=== PATIENT | female | born 1960 | race Caucasian/White ===

== ENCOUNTER → 2018-11-08 | Outpatient (CLI) | payer OTHER ==
--- NOTE | 2018-11-08 09:33 | WOMENS IMAGING REPORT ---
EXAM DESCRIPTION: U/S ABDOMEN LIMITED COMPLETED DATE/TIME: 11/08/2018 8:19 am REASON FOR STUDY: R10.13 EPIGASTRIC PAIN R10.13 EPIGASTRIC PAIN COMPARISON: Abdominal ultrasound 01/13/2009 TECHNIQUE: Dynamic and static grayscale images acquired of the abdomen and recorded on PACS. Additio nal selected color Doppler and spectral images recorded. LIMITATIONS: Midline bowel gas, large body habitus FINDINGS: PANCREAS: Not well seen LIVER: Echogenic liver difficult to penetrate with the ultrasound energy from fatty infiltration. No gross focal masses or biliary ductal dilatation LIVER VASCULATURE: Normal directional flow of the main portal vein and hepatic veins. GALLBLADDER: Multiple shadowing gallstones are present. No gallbladder wall thickening or pericholec ystic fluid ULTRASOUND-DETECTED MOLINA'S SIGN: Negative. INTRAHEPATIC DUCTS AND COMMON DUCT: CBD and intrahepatic ducts normal caliber. No filling defects. INFERIOR VENA CAVA: Not well seen AORTA: Not well seen RIGHT KIDNEY: Normal size. Normal echogenicity. No solid or suspicious masses. No hydronephrosis. No calcifications. PERITONEAL AND RIGHT PLEURAL SPACE: No ascites or effusions. OTHER: No other significant findings. IMPRESSION: Fatty liver Stones in the gallbladder without gallbladder wall thickening or pericholecystic fluid. TECHNICAL DOCUMENTATION: JOB ID: [id number] [employer]- All Rights Reserved Reading location - IP/workstation name: [email or web address]
== END ==
LOC: WI 07:51
PROVIDERS: ATTEND Internal Medicine Gastroenterology
DX: R10.13 Epigastric pain (principal)
CPT/HCPCS: 76705

== ENCOUNTER 2018-12-13 07:58 | Day surgery (SDC) | payer OTHER ==
[2018-12-07 10:48] LABS: HEMATOCRIT 41.7 % (36.0-47.0); HEMOGLOBIN 13.8 g/dL (12.0-15.5); MEAN CORPUSCULAR HGB CONC 33.2 g/dL (32.0-36.0); MEAN CORPUSCULAR VOLUME 91 fl (80-97); PLATELET COUNT 299 10^3/uL (150-450); RED CELL DISTRIBUTION WIDTH 13.7 % (11.5-14.0); WHITE BLOOD COUNT 4.6 10^3/uL (4.0-10.5)
--- NOTE | 2018-12-07 11:02 | RADIOLOGY REPORT (SQ) ---
EXAM DESCRIPTION: CHEST PA/LATERAL COMPLETED DATE/TIME: 12/07/2018 10:46 am REASON FOR STUDY: COUGH COMPARISON: 10/09/2011 EXAM PARAMETERS: NUMBER OF VIEWS: two views TECHNIQUE: Digital Frontal and Lateral radiographic views of the chest acquired. RADIATION DOSE: NA LIMITATIONS: none FINDINGS: LUNGS AND PLEURA: No opacities, masses or pneumothorax. No pleural effusion. MEDIASTINUM AND HILAR STRUCTURES: No masses or contour abnormalities. HEART AND VASCULAR STRUCTURES: Heart normal size. No evidence for failure. BONES: No acute findings. HARDWARE: None in the chest. OTHER: No other significant finding. IMPRESSION: NO SIGNIFICANT RADIOGRAPHIC FINDING IN THE CHEST. TECHNICAL DOCUMENTATION: JOB ID: [id number] [employer]- All Rights Reserved Reading location - IP/workstation name: [email or web address]
[2018-12-07 11:22] LABS: ALANINE AMINOTRANSFERASE 40 U/L (9-52); ALKALINE PHOSPHATASE 74 U/L (38-126); ANION GAP 9 (5-19); ASPARTATE AMINO TRANSFERASE 31 U/L (14-36); BILIRUBIN,DIRECT 0.2 mg/dL (0.0-0.4); BILIRUBIN,TOTAL 0.3 mg/dL (0.2-1.3); BLOOD UREA NITROGEN 8 mg/dL (7-20); CALCIUM 9.9 mg/dL (8.4-10.2); CARBON DIOXIDE 30 mmol/L (22-30); CHLORIDE 104 mmol/L (98-107); GLUCOSE 107 mg/dL (75-110); POTASSIUM 5.2 mmol/L (3.6-5.0); SODIUM 142.8 mmol/L (137-145); TOTAL PROTEIN 6.9 g/dL (6.3-8.2)
--- NOTE | 2018-12-07 22:34 | EKG REPORT ---
SEVERITY:- BORDERLINE ECG - SINUS RHYTHM BORDERLINE T ABNORMALITIES, ANTERIOR LEADS : Confirmed by: Jazmyne oCnrad 07-Dec-2018 22:34:34
[~2018-12-13 07:58] MED LIST: CEFOXITIN SODIUM 2 GM in DEXTROSE 5%-WATER 100 ML IV PRN; IBUPROFEN 800 MG in NORMAL SALINE 250 ML IV PRN; LACTATED RINGERS 1000 ML IV PRN; LIDOCAINE 0.5% INJ-PF (5 MG/ML) 50 ML SDV SUBCUT PRN; PREGABALIN 50 MG CAPSULE ONE; PREGABALIN 50 MG CAPSULE PO PRN
[2018-12-13] MEDS ORDERED: BUPIVACAINE HCL 0.25 % INJ/PF (2.5 MG/1 ML) 30 ML VIAL ONE (08:01)
[2018-12-13] MEDS ORDERED: FAMOTIDINE INJ/PF 20 MG/2 ML SDV IV ONE (08:11)
[2018-12-13] MEDS ORDERED: SCOPOLAMINE HYDROBROMIDE 1.5 MG PATCH.TD72 ONE (08:11)
[2018-12-13] MEDS ORDERED: RINGERS SOLUTION,LACTATED 1,000 ML IV ONE (08:30)
[2018-12-13] MEDS ORDERED: PROPOFOL INJ 200 MG/20 ML VIAL IV ONE (09:19)
[2018-12-13] MEDS ORDERED: MIDAZOLAM 2 MG/2 ML INJ ONE (09:19)
[2018-12-13] MEDS ORDERED: FENTANYL CITRATE INJ/PF 100 MCG/2 ML AMPUL ONE ×2 (09:19→09:55)
[2018-12-13] MEDS ORDERED: LIDOCAINE 2% INJ-PF (100 MG/5 ML) SYRINGE ONE (09:19)
[2018-12-13] MEDS ORDERED: HYDROMORPHONE HCL INJ/PF 2 MG/ML AMPULE ONE (09:55)
[2018-12-13] MEDS ORDERED: DIPHENHYDRAMINE HCL 50 MG/ML VIAL IV PRN (12:38)
[2018-12-13] MEDS ORDERED: FENTANYL CITRATE INJ/PF 100 MCG/2 ML AMPUL IV PRN ×3 (12:38)
[2018-12-13] MEDS ORDERED: PROMETHAZINE HCL INJ 25 MG/1 ML VIAL IV PRN ×2 (12:38)
[2018-12-13] MEDS ORDERED: ONDANSETRON HCL INJ/PF 4 MG/2 ML SDV IV PRN (12:38)
[2018-12-13] MEDS ORDERED: HYDROCODONE/ACETAMINOPHEN 10-325 MG TABLET ONE (12:51)
[2018-12-13] MEDS ORDERED: METOCLOPRAMIDE HCL INJ/PF 10 MG/2 ML SDV ONE (13:30)
[2018-12-13] MEDS ORDERED: ONDANSETRON HCL INJ/PF 4 MG/2 ML SDV ONE (13:30)
[2018-12-13] MEDS ORDERED: ROCURONIUM BROMIDE INJ 50 MG/5 ML VIAL IV ONE (13:30)
[2018-12-13] MEDS ORDERED: DEXAMETHASONE SOD PHOSPHATE INJ 4 MG/1 ML VIAL ONE (13:30)
[2018-12-13] MEDS ORDERED: NEOSTIGMINE METHYLSULFATE 10 MG/10 ML VIAL ONE (13:30)
[2018-12-13] MEDS ORDERED: PHENYLEPHRINE HCL INJ/PF 10 MG/1 ML SDV ONE (13:30)
[2018-12-13] MEDS ORDERED: SUCCINYLCHOLINE CHLORIDE INJ 200 MG/10 ML VIAL ONE (13:30)
[2018-12-13] MEDS ORDERED: GLYCOPYRROLATE 1 MG/5 ML SYRINGE ONE (13:30)
[2018-12-13 16:01] VITALS: BP 152/78
--- NOTE | 2018-12-14 07:26 | Discharge Summary ---
Discharge Summary (SDC) - Discharge Final Diagnosis: Chronic cholecystitis Date of Surgery: 12/13/18 Discharge Date: 12/13/18 Condition: Stable Forms: ASU Anesthesia D/C Instruction, Discharge POC-Surgical Service Treatment or Instructions: Discharge home. Diet as tolerated. Activity: No lifting greater than 10 pounds x 2 weeks. Follow-up with me in 7 to 10 days. Okay to shower in 48 hours. No tub baths or swimming pools x2 weeks. [place] 10/325 mg p.o. every 6 hours as needed for pain. Ibuprofen 800 mg p.o. 3 times daily with meals. Referrals: GOLD BROUSSARD MD [ACTIVE STAFF] - 12/20/18 8:00 am (Keep your scheduled follow up appointment.) Discharge Diet: As Tolerated Respiratory Treatments at Home: Deep Breathing/Coughing, Incentive Spirometer Discharge Activity: Balance Activity w/Rest, No Lifting Over 10 Pounds Home Care Assistance: None Needed Report the Following to Your Physician Immediately: Shortness of Breath, Nausea, Vomiting, Increase in Pain, Yellow Skin, Fever over 101 Degrees, Unusual Bleeding, Redness, Swelling, Warmth, Drainage-Foul Smelling, IV Site Infection Signs
--- NOTE | 2018-12-14 07:33 | Operative Report ---
Nonrecallable Operative Report DATE OF SURGERY: 12/13/18 PREOPERATIVE DIAGNOSIS: Symptomatic gallstones POSTOPERATIVE DIAGNOSIS: Chronic cholecystitis OPERATION: Laparoscopic cholecystectomy SURGEON: GOLD BROUSSARD 1ST TROUBLE DISPATCHER: ABBY CARR ANESTHESIA: GA TISSUE REMOVED OR ALTERED: Gallbladder COMPLICATIONS: None apparent ESTIMATED BLOOD LOSS: 30 cc PROCEDURE: Drains/implants: None. Procedure in detail: After informed consent was obtained, the patient was brought to the operating room and laid in the supine position. The area of the abdomen was prepped and draped in a normal sterile fashion. A supraumbilical incision was created with a 15 blade scalpel. This was deepened using sharp and blunt means. The linea alba fascia was incised sharply, the abdomen was entered sharply. The balloon trocar was inserted, and pneumoperitoneum was achieved. A subxiphoid 5 mm port was placed under direct laparoscopic visualization. 2 more 5 mm ports were placed in the right upper quadrant in similar fashion. Atraumatic graspers were placed through the 5 mm ports. The gallbladder was then retracted cephalad and laterally. There was a dense inflammatory reaction in and around the gallbladder. This appeared chronic. Multiple adhesions were taken down from the gallbladder using sharp and blunt dissection. Dissection was then begun in the triangle of [place]. The cystic duct and cystic artery will were identified. The cystic duct appeared short and dilated. There is a large gallstone lodged in the infundibulum. The cystic artery was easily identified. Once both structures were identified and the critical view of safety was confirmed, the cystic artery was clipped and cut with laparoscopic instruments. Next attention was turned to freeing of the gallbladder, as the cystic duct was too large and short to accommodate endoscopic clips. The gallbladder was freed from the liver using sharp dissection, blunt dissection, and electrocautery. Once this was completed the gallbladder was elevated and a PDS Endoloop was secured around the cystic duct/infundibulum junction. The gallbladder was then amputated and placed into an Endo Catch bag. The gallbladder was then removed through the supraumbilical incision. Due to the large gallstone, the fascial and skin incision had to be lengthened. The camera was then reinserted. The abdomen was copiously irrigated and suctioned until the effluent was clear. The hilum was inspected. It was found to be free of any leakage of blood or bile. Once this was confirmed, the 5 mm trochars were removed under direct laparoscopic visualization. The supraumbilical trocar was removed, and pneumoperitoneum was relieved. Low to the large incision that was made to remove the gallstone, 0 Ethibond was used in [id number] fashion x2 to close the fascia of the supraumbilical incision. The overlying skin was closed using 4-0 Vicryl Rapide suture in subcuticular fashion. Dressings were placed, and the procedure was concluded. All sponge, instrument, and needle counts were correct x2. Condition: Stable. Abby Carr PA-C was scrubbed and present the entirety the procedure. She assisted with all portions of the procedure including opening of the abdomen, manipulation of the gallbladder, placement of the trochars, removal of the gallbladder, closure of the fascia, and closure of the skin.
== END 2018-12-13 14:00 | disposition home or self-care (01) ==
LOC: OROUT 07:58
PROVIDERS: ATTEND Surgery
DX: K80.10 Calculus of gallbladder with chronic cholecystitis without obstruction (principal); E03.9 Hypothyroidism, unspecified; G35 Multiple sclerosis; Z79.899 Other long term (current) drug therapy
CPT/HCPCS: 93005; 36415 ×2; 84132; 85027; 80053; 88304 ×2; 71046; 93010; 47562; J2250; J3490 ×3; J1100; J0694; J3010; J2001; J2765; J2710; J1170; J2370; J0330; J2405; J7060; J7050; J2704; S0028; J1741; 790

== ENCOUNTER 2019-04-20 07:33 | Observation (INO) | payer OTHER ==
[2019-04-20] MEDS ORDERED: ASPIRIN 81 MG TABLET, CHEWABLE PO ONE (07:53)
[2019-04-20] MEDS ORDERED: ASPIRIN 81 MG TABLET, CHEWABLE ONE (07:55)
[2019-04-20 08:20] LABS: ABSOLUTE EOSINOPHILS # (AUTO) 0.1 10^3/uL (0.0-0.6); ABSOLUTE LYMPHOCYTES (AUTO) 1.2 10^3/uL (0.5-4.7); ABSOLUTE MONOCYTES (AUTO) 0.5 10^3/uL (0.1-1.4); ABSOLUTE NEUT (AUTO) 2.7 10^3/uL (1.7-8.2); BASOPHILS % (AUTO) 0.5 % (0-2); EOSINOPHILS % (AUTO) 1.3 % (0-6); HEMATOCRIT 41.3 % (36.0-47.0); HEMOGLOBIN 13.8 g/dL (12.0-15.5); LYMPHOCYTES % (AUTO) 26.6 % (13-45); MEAN CORPUSCULAR HEMOGLOBIN 29.7 pg (27.0-33.4); MEAN CORPUSCULAR HGB CONC 33.4 g/dL (32.0-36.0); MEAN CORPUSCULAR VOLUME 89 fl (80-97); MONOCYTES % (AUTO) 11.9 % (3-13); PLATELET COUNT 299 10^3/uL (150-450); RED BLOOD COUNT 4.64 10^6/uL (3.72-5.28); RED CELL DISTRIBUTION WIDTH 14.7 % (11.5-14.0); SEGMENTED NEUTROPHILS % (AUTO) 59.7 % (42-78); TOTAL CELLS COUNTED % (AUTO) 100 %; WHITE BLOOD COUNT 4.4 10^3/uL (4.0-10.5)
[2019-04-20] MEDS ORDERED: LORAZEPAM INJ 2 MG/1 ML VIAL IV ONE (08:34)
[2019-04-20] MEDS ORDERED: KETOROLAC TROMETHAMINE INJ/PF 30 MG/1 ML SDV IV ONE (08:34)
--- NOTE | 2019-04-20 08:40 | RADIOLOGY REPORT (SQ) ---
EXAM DESCRIPTION: CHEST SINGLE VIEW COMPLETED DATE/TIME: 04/20/2019 8:22 am REASON FOR STUDY: chest pain COMPARISON: 12/07/2018. EXAM PARAMETERS: NUMBER OF VIEWS: One view. TECHNIQUE: Single frontal radiographic view of the chest acquired. RADIATION DOSE: NA LIMITATIONS: None. FINDINGS: LUNGS AND PLEURA: No opacities, masses or pneumothorax. No pleural effusion. MEDIASTINUM AND HILAR STRUCTURES: No masses. Contour normal. HEART AND VASCULAR STRUCTURES: Heart normal in size. Normal vasculature. BONES: No acute findings. HARDWARE: None in the chest. OTHER: No other significant finding. IMPRESSION: NO ACUTE RADIOGRAPHIC FINDING IN THE CHEST. TECHNICAL DOCUMENTATION: JOB ID: [id number] [employer]- All Rights Reserved Reading location - IP/workstation name: [email or web address]
[2019-04-20 08:41] LABS: ALBUMIN 4.3 g/dL (3.5-5.0); ALKALINE PHOSPHATASE 86 U/L (38-126); ANION GAP 10 (5-19); ASPARTATE AMINO TRANSFERASE 30 U/L (14-36); BILIRUBIN,DIRECT 0.1 mg/dL (0.0-0.4); BILIRUBIN,TOTAL 0.3 mg/dL (0.2-1.3); BLOOD UREA NITROGEN 8 mg/dL (7-20); CARBON DIOXIDE 27 mmol/L (22-30); CHLORIDE 103 mmol/L (98-107); CREATINE KINASE 112 U/L (30-135); GLUCOSE 98 mg/dL (75-110); POTASSIUM 4.4 mmol/L (3.6-5.0)
--- NOTE | 2019-04-20 08:50 | ER Document Report ---
Entered by FERNIE EDMOND SCRIBE 04/20/19 0839 Acting as scribe for:ELISEO ROB MD ED Cardiac - General Chief Complaint: Chest Pain Stated Complaint: CHEST PAIN, LEFT ARM PAIN Time Seen by Provider: 04/20/19 08:21 Mode of Arrival: Ambulatory Information source: Patient Notes: 58-year-old female who presents to the emergency department today with complaints of chest pain which began around midnight last night. Patient states the pain lasted until she fell asleep around 2 AM. Patient states the pain woke her up out of sleep at 530 this morning and has been constant since then. Patient describes the pain as a "giant muscle cramp". Patient states she has pain that radiates down from her chest through her abdomen into her pelvis. Patient states that she does not notice any change with movements, deep breathing, or coughing. Patient states "it feels like maybe if I take a deep breath it would alleviate it". Patient appears anxious. Patient mentions that one week ago she had an ultrasound done of the left side of her abdomen due to chronic left-sided abdominal pain. Patient states she has not yet gotten the results of this. TRAVEL OUTSIDE OF THE [place] IN LAST 30 DAYS: No - Related Data Allergies/Adverse Reactions: codeine [Codeine] Allergy (Intermediate, Verified 12/07/18 10:27) Hives, Vomiting Past Medical History - General Information source: Patient - Social History Smoking Status: Never Smoker Cigarette use (# per day): No Chew tobacco use (# tins/day): No Smoking Education Provided: No Frequency of alcohol use: Occasional Drug Abuse: None Lives with: Family Family History: Reviewed & Not Pertinent Patient has suicidal ideation: No Patient has homicidal ideation: No Pulmonary Medical History: Reports: Hx Pneumonia GI Medical History: Reports: Hx Ulcer - 2016 Past Surgical History: Reports: Hx Abdominal Surgery - gastric bypass , Hx Cholecystectomy - November 2018 - Immunizations Hx Diphtheria, Pertussis, Tetanus Vaccination: Yes Review of Systems - Review of Systems Constitutional: No symptoms reported EENT: No symptoms reported Cardiovascular: See HPI, Chest pain Respiratory: No symptoms reported Gastrointestinal: No symptoms reported Genitourinary: No symptoms reported Female Genitourinary: No symptoms reported Musculoskeletal: No symptoms reported Skin: No symptoms reported Hematologic/Lymphatic: No symptoms reported Neurological/Psychological: No symptoms reported -: Yes All other systems reviewed and negative Physical Exam - Vital signs Vitals: Temp Pulse Resp BP Pulse Ox 97.6 F 84 20 148/84 H 100 04/20/19 07:42 04/20/19 07:42 04/20/19 07:42 04/20/19 07:42 04/20/19 07:42 - Notes Notes: Physical Exam: General: Alert, appears anxious. HEENT: Normocephalic. Atraumatic. PERRL. Extraocular movements intact. Orophar ynx clear. Neck: Supple. Non-tender. Respiratory: No respiratory distress. Clear and equal breath sounds bilaterally. Cardiovascular: Regular rate and rhythm. Abdominal: Obese. Non-tender. No distension. Normal Bowel Sounds. Back: No gross abnormalities. Extremities: Moves all four extremities. Upper extremities: Normal inspection. Normal ROM. Lower extremities: Normal inspection. No edema. Normal ROM. Neurological: Rhythmic jerking of left leg. Normal cognition. AAOx4. Normal speech. Psychological: Anxious, frequent long deep signs throughout exam. Skin: Warm. Dry. Normal color. Course - Re-evaluation Re-evalutation: 04/20/19 13:57 The patient repeat troponin was also undetectable. I just now went in to see the patient, and she had sudden onset of the same pain in her left upper anterior chest causing her to clutch her chest. She began to breathe a little fast and deep. She states it is just like the pain previously and this came on suddenly waking her up. I did give her 1 sublingual nitroglycerin, her most recent blood pressure was about 140 systolic. A few minutes after nitroglycerin her systolic pressure was just over 160 and she was quite anxious. I did notice on the monitor during this time she is having frequent PACs with compensatory pauses. During this time a repeat physical exam shows no chest wall tenderness, no abdominal tenderness. 04/20/19 14:28 Patient reports that her chest discomfort is still present, but it is much better than it was when I was in the room previously. She is having a rare PAC at this time. I gave her an additional sublingual nitroglycerin to see if it makes the pain improve anymore. 04/20/19 15:16 I went into see the patient shortly after the second nitroglycerin, and she states that the pain went away completely after the second nitroglycerin, and she thinks that the resolution of pain was related to the nitroglycerin tablet. - Vital Signs Vital signs: Temp Pulse Resp BP Pulse Ox 98.2 F 84 9 L 142/70 H 97 04/20/19 12:01 04/20/19 07:42 04/20/19 13:01 04/20/19 13:01 04/20/19 13:01 - Laboratory Result Diagrams: 04/20/19 08:06 04/20/19 08:06 Laboratory results interpreted by me: 04/20/19 04/20/19 08:06 09:00 RDW 14.7 H Ur Leukocyte Esterase SMALL H - Diagnostic Test Radiology reviewed: Image reviewed, Reports reviewed - Chest x-ray does not show any acute findings. - EKG Interpretation by Me EKG shows normal: Sinus rhythm, [place], Intervals, QRS Complexes. abnormal: ST-T Waves - Borderline anterior lateral T abnormalities Rate: Normal - 83 Rhythm: NSR - Consults DC [place] Time consulted: 15:20 Consulted provider: will come to ER Discharge - Discharge Clinical Impression: Chest pain Qualifiers: Chest pain type: unspecified Qualified Code(s): R07.9 - Chest pain, unspecified High blood pressure Qualifiers: Hypertension type: unspecified Qualified Code(s): I10 - Essential (primary) hypertension Condition: Stable Disposition: ADMITTED OBSERVATION Admitting Provider: [place] (Hospitalist) Unit Admitted: Telemetry Scribe Attestation: 04/20/19 10:22 I personally performed the services described in the documentation, reviewed and edited the documentation which was dictated to the scribe in my presence, and it accurately records my words and actions. I personally performed the services described in the documentation, reviewed and edited the documentation which was dictated to the scribe in my presence, and it accurately records my words and actions.
[2019-04-20 08:52] LABS: CREATINE KINASE MB 1.24 ng/mL (<4.55)
[2019-04-20 08:55] LABS: TROPONIN I < 0.012 ng/mL
[2019-04-20 09:35] LABS: APPEARANCE,URINE CLEAR; BILIRUBIN,URINE NEGATIVE (NEGATIVE); COLOR,URINE STRAW; GLUCOSE, URINE NEGATIVE (NEGATIVE); KETONES,URINE NEGATIVE (NEGATIVE); LEUKOCYTE ESTERASE,URINE SMALL (NEGATIVE); NITRITE,URINE NEGATIVE (NEGATIVE); PROTEIN,URINE NEGATIVE (NEGATIVE); URINE SPECIFIC GRAVITY 1.005; UROBILINOGEN,URINE NEGATIVE mg/dL (<2.0)
[2019-04-20] MEDS ORDERED: ONDANSETRON HCL INJ/PF 4 MG/2 ML SDV IV PRN (16:17)
[2019-04-20] MEDS ORDERED: OXYCODONE-ACETAMINOPHEN 5-325 MG TABLET PO PRN (16:17)
[2019-04-20] MEDS ORDERED: ONDANSETRON 4 MG TAB.RAPDIS PO PRN (16:17)
[2019-04-20] MEDS ORDERED: ZOLPIDEM TARTRATE 5 MG TABLET PO PRN (16:17)
[2019-04-20] MEDS ORDERED: ACETAMINOPHEN 325 MG TABLET PO PRN (16:17)
[2019-04-20] MEDS ORDERED: NITROGLYCERIN 0.4 MG/TAB 25 TAB/BOTTLE SL PRN (16:27)
[2019-04-20] MEDS ORDERED: OCRELIZUMAB 300 MG IV SCH (16:30)
--- NOTE | 2019-04-20 16:54 | PDOC H&P ---
History of Present Illness Admission Date/PCP: 04/20/19 15:55 History of Present Illness: DAGMAR MAIER is a 58 year old female admitted to the hospital today on 04/20/2019 chest pain. Patient states that last night around midnight for about 2 hours she had left-sided chest wall pain that went down the left arm. She also says it went down to the left side of her body into her left chest abdomen and pelvis. Been having pelvic pain and left-sided abdominal pain for about 3 months now. Being investigated with ultrasound last week. Patient states again this morning she had left-sided chest wall pain around 0530 so she came to the emergency room. So far troponin x2 have been negative. EKG shows no acute changes. She did get relief from 2 nitroglycerin lingual in the ER. She was also given some Toradol and Zofran which seemed to give her relief earlier as well. She has a strong family history of cardiac disease father had a double bypass mother had a triple bypass both in her 60s 5 siblings and pretty much all of them have cardiac disease of some sort. Patient has multiple sclerosis now for the last 7 years. Patient has had right- sided neurologic symptoms from her MS in the past.. Patient was wondering if these problems in her abdomen and left side of her chest wall or related to her MS. she does not smoke cigarettes, she does not drink alcohol, codeine gives her hives. 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 She does not have a primary care provider. Past Medical History Cardiac Medical History: Denies: Coronary Artery Disease, Myocardial Infarction, Hypertension Pulmonary Medical History: Reports: Pneumonia Denies: Asthma, Bronchitis, Chronic Obstructive Pulmonary Disease (COPD) Neurological Medical History: Denies: Seizures Endocrine Medical History: Reports: Hypothyroidism GI Medical History: Reports: Other - Gastric bypass in 2008 Musculoskeltal Medical History: Denies: Arthritis Psychiatric Medical History: Reports: Other - She is on antidepressant Hematology: Reports: Anemia Past Surgical History Past Surgical History: Reports: Cholecystectomy - November 2018 Social History Lives with: Family Smoking Status: Never Smoker - Advance Directive Resuscitation Status: Full Code Family History Family History: Reviewed & Not Pertinent Parental Family History Reviewed: No Children Family History Reviewed: No Sibling(s) Family History Reviewed.: No Medication/Allergy Home Medications: Duloxetine HCl [Cymbalta] 60 mg PO DAILY 04/20/19 Levothyroxine Sodium [Synthroid] 137 mcg PO Q6AM 04/20/19 Ocrelizumab [Ocrevus] 300 mg IV .[id number] 04/20/19 Oxcarbazepine [Trileptal 150 mg Tablet] 150 mg PO BID 04/20/19 Thyroid (Pork) [[place] Thyroid 60 mg Tablet] 60 mg PO Q6AM 04/20/19 Allergies/Adverse Reactions: codeine [Codeine] Allergy (Intermediate, Verified 12/07/18 10:27) Hives, Vomiting Review of Systems Constitutional: ABSENT: chills, fever(s), headache(s), weight gain, weight loss Cardiovascular: PRESENT: chest pain Respiratory: ABSENT: cough, hemoptysis Gastrointestinal: PRESENT: abdominal pain Genitourinary: PRESENT: other - Snow pain Neurological: ABSENT: abnormal gait, abnormal speech, confusion, dizziness, focal weakness, syncope Psychiatric: ABSENT: anxiety, depression, homidical ideation, suicidal ideation Physical Exam Vital Signs: Temp Pulse Resp BP Pulse Ox 98.2 F 84 9 L 142/70 H 97 04/20/19 12:01 04/20/19 07:42 04/20/19 13:01 04/20/19 13:01 04/20/19 13:01 Intake & Output 04/19/19 04/20/19 04/21/19 06:59 06:59 06:59 Weight 112.491 kg General appearance: PRESENT: no acute distress, other - No chest pain now no shortness of breath Respiratory exam: PRESENT: clear to auscultation rachel. ABSENT: rales, rhonchi, wheezes Cardiovascular exam: PRESENT: RRR. ABSENT: diastolic murmur, rubs, systolic murmur Neurological exam: PRESENT: alert, awake, oriented to person, oriented to place, oriented to time, oriented to situation, CN II-XII grossly intact. ABSENT: motor sensory deficit Psychiatric exam: PRESENT: appropriate affect, normal mood. ABSENT: homicidal ideation, suicidal ideation Results Laboratory Results: 04/20/19 08:06 04/20/19 08:06 04/20/19 04/20/19 04/20/19 08:06 08:06 09:00 WBC 4.4 RBC 4.64 Hgb 13.8 Hct 41.3 MCV 89 MCH 29.7 MCHC 33.4 RDW 14.7 H Plt Count 299 Seg Neutrophils % 59.7 Sodium 139.7 Potassium 4.4 Chloride 103 Carbon Dioxide 27 Anion Gap 10 BUN 8 Creatinine 0.53 Est GFR ( Amer) > 60 Glucose 98 Calcium 10.0 Total Bilirubin 0.3 AST 30 Alkaline Phosphatase 86 Total Protein 7.0 Albumin 4.3 Urine Color STRAW Urine Appearance CLEAR Urine pH 9.0 Ur Specific [place] 1.005 Urine Protein NEGATIVE Urine Glucose (UA) NEGATIVE Urine Ketones NEGATIVE Urine Blood NEGATIVE Urine Nitrite NEGATIVE Ur Leukocyte Esterase SMALL H Urine WBC (Auto) 10 Urine RBC (Auto) 1 04/20/19 04/20/19 04/20/19 08:06 08:06 11:05 Creatine Kinase 112 CK-MB (CK-2) 1.24 Troponin I < 0.012 < 0.012 Impressions: Chest X-Ray 04/20/19 07:54 IMPRESSION: NO ACUTE RADIOGRAPHIC FINDING IN THE CHEST. Assessment and Plan - Diagnosis (1) Hypothyroidism Is this a current diagnosis for this admission?: Yes (2) Depression Is this a current diagnosis for this admission?: Yes (3) Multiple sclerosis Is this a current diagnosis for this admission?: Yes (4) Obesity Is this a current diagnosis for this admission?: Yes (5) Chest pain Qualifiers: Chest pain type: unspecified Qualified Code(s): R07.9 - Chest pain, unspecified Is this a current diagnosis for this admission?: Yes - Plan Summary Summary: 04/20/2019 going to get a third troponin this evening can recheck her lipids in the morning can start on a beta-deepa and a statin. Probably follow-up with cardiology as an outpatient for a stress test and an echo. Explained this to the patient she is satisfied with this approach. She will be put in under observation status Medically stable - Time Time Spent with patient: 35 or more minutes
[2019-04-20] MEDS: OXCARBAZEPINE 150 MG TABLET PO SCH (18:50)
--- NOTE | 2019-04-20 19:24 | EKG REPORT ---
SEVERITY:- BORDERLINE ECG - SINUS RHYTHM BORDERLINE T ABNORMALITIES, ANT-LAT LEADS : Confirmed by: Farida Sanabria MD 20-Apr-2019 19:23:32
[2019-04-20 20:16] LABS: CREATINE KINASE MB 0.77 ng/mL (<4.55)
[2019-04-20 20:25] LABS: TROPONIN I < 0.012 ng/mL
[2019-04-20] MEDS: FAMOTIDINE 20 MG TABLET PO SCH (21:06)
[2019-04-20] MEDS ORDERED: ATORVASTATIN CALCIUM 10 MG TABLET PO SCH (22:00)
[2019-04-21 05:22] LABS: ABSOLUTE EOSINOPHILS # (AUTO) 0.1 10^3/uL (0.0-0.6); ABSOLUTE LYMPHOCYTES (AUTO) 1.3 10^3/uL (0.5-4.7); ABSOLUTE MONOCYTES (AUTO) 0.6 10^3/uL (0.1-1.4); BASOPHILS % (AUTO) 0.5 % (0-2); EOSINOPHILS % (AUTO) 2.4 % (0-6); HEMATOCRIT 38.7 % (36.0-47.0); LYMPHOCYTES % (AUTO) 33.5 % (13-45); MEAN CORPUSCULAR HEMOGLOBIN 29.8 pg (27.0-33.4); MEAN CORPUSCULAR HGB CONC 33.6 g/dL (32.0-36.0); MEAN CORPUSCULAR VOLUME 89 fl (80-97); MONOCYTES % (AUTO) 13.9 % (3-13); PLATELET COUNT 259 10^3/uL (150-450); RED BLOOD COUNT 4.37 10^6/uL (3.72-5.28); RED CELL DISTRIBUTION WIDTH 14.3 % (11.5-14.0); SEGMENTED NEUTROPHILS % (AUTO) 49.7 % (42-78); TOTAL CELLS COUNTED % (AUTO) 100 %
[2019-04-21 05:42] LABS: ALBUMIN 3.5 g/dL (3.5-5.0); ALKALINE PHOSPHATASE 81 U/L (38-126); ANION GAP 8 (5-19); ASPARTATE AMINO TRANSFERASE 27 U/L (14-36); BILIRUBIN,DIRECT 0.2 mg/dL (0.0-0.4); BILIRUBIN,TOTAL 0.3 mg/dL (0.2-1.3); BLOOD UREA NITROGEN 6 mg/dL (7-20); CALCIUM 9.1 mg/dL (8.4-10.2); CARBON DIOXIDE 25 mmol/L (22-30); CHLORIDE 106 mmol/L (98-107); CHOLESTEROL 134.02 mg/dL (0-200); GLUCOSE 98 mg/dL (75-110); POTASSIUM 4.1 mmol/L (3.6-5.0); TOTAL PROTEIN 6.2 g/dL (6.3-8.2); TRIGLYCERIDES 91 mg/dL (<150)
[2019-04-21 05:52] LABS: DIRECT LDL 86 mg/dL (<100)
[2019-04-21] MEDS ORDERED: LEVOTHYROXINE SODIUM 0.025 MG TABLET PO SCH (06:00)
[2019-04-21] MEDS ORDERED: LEVOTHYROXINE SODIUM 0.112 MG TABLET PO SCH ×2 (06:00→11:00)
[2019-04-21] MEDS ORDERED: THYROID (PORK) 60 MG TABLET PO SCH ×2 (06:00→11:00)
[2019-04-21] MEDS ORDERED: THYROID (PORK) 60 MG TABLET ONE (06:08)
[2019-04-21] MEDS ORDERED: DULOXETINE HCL 30 MG CAPSULE.DR PO SCH (10:00)
[2019-04-21] MEDS ORDERED: ENOXAPARIN SODIUM INJ 40 MG/0.4 ML DISP.SYRIN SUBCUT SCH ×2 (10:00)
[2019-04-21] MEDS ORDERED: ASPIRIN 81 MG TABLET, ENT COATED PO SCH (10:00)
[2019-04-21] MEDS ORDERED: METOPROLOL SUCCINATE 25 MG TAB.SR.24H PO SCH ×2 (10:00)
[2019-04-21] MEDS ORDERED: DOCUSATE SODIUM 100 MG CAPSULE PO SCH (10:00)
[2019-04-21] MEDS: FAMOTIDINE 20 MG TABLET PO SCH (10:14)
[2019-04-21] MEDS: OXCARBAZEPINE 150 MG TABLET PO SCH (10:14)
--- NOTE | 2019-04-21 11:51 | PDOC DISCHARGE SUMMARY ---
Impression - Admit/DC Date/PCP Admission Date/Primary Care Provider: 04/20/19 15:55 Discharge Date: 04/21/19 - Discharge Diagnosis (1) Hypothyroidism Is this a current diagnosis for this admission?: Yes (2) Depression Is this a current diagnosis for this admission?: Yes (3) Multiple sclerosis Is this a current diagnosis for this admission?: Yes (4) Obesity Is this a current diagnosis for this admission?: Yes (5) Chest pain Is this a current diagnosis for this admission?: Yes - Assessment Summary: 04/20/2019 going to get a third troponin this evening can recheck her lipids in the morning can start on a beta-deepa and a statin. Probably follow-up with cardiology as an outpatient for a stress test and an echo. Explained this to the patient she is satisfied with this approach. She will be put in under observation status Medically stable 04/21/2019 patient's troponins were negative she will be followed up as an outpatient by the director compliance Dr. Sanabria. Patient was given a prescription for nitro sublingual as needed Toprol 25 XL per 30 and Lipitor 10 mg #30 Patient seems satisfied with her visit. Patient has a strong family history of cardiac disease. - Additional Information Resuscitation Status: Full Code Discharge Diet: Cardiac Discharge Activity: Activity As Tolerated Prescriptions: Atorvastatin Calcium [Lipitor 10 mg Tablet] 10 mg PO QHS #30 tablet Nitroglycerin [Nitrostat 0.4 mg (1/150 Gr) Tabs 25/Bottle] 1 tab SL Q5MP PRN #30 bottle PRN Reason: Metoprolol Succinate [Toprol Xl 25 mg Tab.sr] 25 mg PO DAILY #30 tab.sr.24h Home Medications: Duloxetine HCl [Cymbalta] 60 mg PO DAILY 04/20/19 Levothyroxine Sodium [Synthroid] 137 mcg PO Q6AM 04/20/19 Ocrelizumab [Ocrevus] 300 mg IV .[id number] 04/20/19 Oxcarbazepine [Trileptal 150 mg Tablet] 150 mg PO BID 04/20/19 Thyroid (Pork) [[place] Thyroid 60 mg Tablet] 60 mg PO Q6AM 04/20/19 Atorvastatin Calcium [Lipitor 10 mg Tablet] 10 mg PO QHS #30 tablet 04/21/19 Levothyroxine Sodium [Synthroid 0.025 mg Tablet] 0.025 mg PO Q6AM tablet 04/21/19 Levothyroxine Sodium [Synthroid 0.112 mg Tablet] 0.112 mg PO Q6AM tablet 04/21/19 Metoprolol Succinate [Toprol Xl 25 mg Tab.sr] 25 mg PO DAILY tab.sr.24h 04/21/19 Metoprolol Succinate [Toprol Xl 25 mg Tab.sr] 25 mg PO DAILY #30 tab.sr.24h 04/21/19 Nitroglycerin [Nitrostat 0.4 mg (1/150 Gr) Tabs 25/Bottle] 1 tab SL Q5MP PRN #30 bottle 04/21/19 History of Present Illiness History of Present Illness: DAGMAR MAIER is a 58 year old female admitted to the hospital today on 04/20/2019 chest pain. Patient states that last night around midnight for about 2 hours she had left-sided chest wall pain that went down the left arm. She also says it went down to the left side of her body into her left chest abdomen and pelvis. Been having pelvic pain and left-sided abdominal pain for about 3 months now. Being investigated with ultrasound last week. Patient states again this morning she had left-sided chest wall pain around 0530 so she came to the emergency room. So far troponin x2 have been negative. EKG shows no acute changes. She did get relief from 2 nitroglycerin lingual in the ER. She was also given some Toradol and Zofran which seemed to give her relief earlier as well. She has a strong family history of cardiac disease father had a double bypass mother had a triple bypass both in her 60s 5 siblings and pretty much all of them have cardiac disease of some sort. Patient has multiple sclerosis now for the last 7 years. Patient has had right- sided neurologic symptoms from her MS in the past.. Patient was wondering if these problems in her abdomen and left side of her chest wall or related to her MS. she does not smoke cigarettes, she does not drink alcohol, codeine gives her hives. 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 She does not have a primary care provider. Physical Exam Vital Signs: Temp Pulse Resp BP Pulse Ox 98.1 F 71 16 128/70 H 96 04/21/19 07:59 04/21/19 07:59 04/21/19 07:59 04/21/19 07:59 04/21/19 07:59 Intake & Output 04/20/19 04/21/19 04/22/19 06:59 06:59 06:59 Intake Total 320 Balance 320 Weight 110.3 kg Results Laboratory Results: WBC 4.0 10^3/uL (4.0-10.5) 04/21/19 04:40 RBC 4.37 10^6/uL (3.72-5.28) 04/21/19 04:40 Hgb 13.0 g/dL (12.0-15.5) 04/21/19 04:40 Hct 38.7 % (36.0-47.0) 04/21/19 04:40 MCV 89 fl (80-97) 04/21/19 04:40 MCH 29.8 pg (27.0-33.4) 04/21/19 04:40 MCHC 33.6 g/dL (32.0-36.0) 04/21/19 04:40 RDW 14.3 % (11.5-14.0) H 04/21/19 04:40 Plt Count 259 10^3/uL (150-450) 04/21/19 04:40 Lymph % (Auto) 33.5 % (13-45) 04/21/19 04:40 [place] % (Auto) 13.9 % (3-13) H 04/21/19 04:40 Eos % (Auto) 2.4 % (0-6) 04/21/19 04:40 Baso % (Auto) 0.5 % (0-2) 04/21/19 04:40 Absolute Neuts (auto) 2.0 10^3/uL (1.7-8.2) 04/21/19 04:40 Absolute Lymphs (auto) 1.3 10^3/uL (0.5-4.7) 04/21/19 04:40 Absolute Monos (auto) 0.6 10^3/uL (0.1-1.4) 04/21/19 04:40 Absolute Eos (auto) 0.1 10^3/uL (0.0-0.6) 04/21/19 04:40 Absolute Basos (auto) 0.0 10^3/uL (0.0-0.2) 04/21/19 04:40 Seg Neutrophils % 49.7 % (42-78) 04/21/19 04:40 D-Dimer 0.41 ug/mL (0.00-0.50) 04/20/19 08:06 Sodium 139.0 mmol/L (137-145) 04/21/19 04:40 Potassium 4.1 mmol/L (3.6-5.0) 04/21/19 04:40 Chloride 106 mmol/L (98-107) 04/21/19 04:40 Carbon Dioxide 25 mmol/L (22-30) 04/21/19 04:40 Anion Gap 8 (5-19) 04/21/19 04:40 BUN 6 mg/dL (7-20) L 04/21/19 04:40 Creatinine 0.46 mg/dL (0.52-1.25) L 04/21/19 04:40 Est GFR ( Amer) > 60 (>60) 04/21/19 04:40 Est GFR (MDRD) Non-Af > 60 (>60) 04/21/19 04:40 Glucose 98 mg/dL (75-110) 04/21/19 04:40 Calcium 9.1 mg/dL (8.4-10.2) 04/21/19 04:40 Magnesium 1.8 mg/dL (1.6-2.3) 04/21/19 04:40 Total Bilirubin 0.3 mg/dL (0.2-1.3) 04/21/19 04:40 Direct Bilirubin 0.2 mg/dL (0.0-0.4) 04/21/19 04:40 Neonat Total Bilirubin Not Reportable 04/21/19 04:40 Neonat Direct Bilirubin Not Reportable 04/21/19 04:40 Neonat Indirect Bili Not Reportable 04/21/19 04:40 AST 27 U/L (14-36) 04/21/19 04:40 ALT 27 U/L (<35) 04/21/19 04:40 Alkaline Phosphatase 81 U/L (38-126) 04/21/19 04:40 Creatine Kinase 112 U/L (30-135) 04/20/19 08:06 CK-MB (CK-2) 0.77 ng/mL (<4.55) 04/20/19 19:15 Troponin I < 0.012 ng/mL 04/20/19 19:15 Total Protein 6.2 g/dL (6.3-8.2) L 04/21/19 04:40 Albumin 3.5 g/dL (3.5-5.0) 04/21/19 04:40 Triglycerides 91 mg/dL (<150) 04/21/19 04:40 Cholesterol 134.02 mg/dL (0-200) 04/21/19 04:40 LDL Cholesterol Direct 86 mg/dL (<100) 04/21/19 04:40 VLDL Cholesterol 18.0 mg/dL (10-31) 04/21/19 04:40 HDL Cholesterol 46 mg/dL (>40) 04/21/19 04:40 Lipase 77.9 U/L (23-300) 04/20/19 19:15 TSH 1.67 uIU/mL (0.47-4.68) 04/20/19 19:15 Urine Color STRAW 04/20/19 09:00 Urine Appearance CLEAR 04/20/19 09:00 Urine pH 9.0 (5.0-9.0) 04/20/19 09:00 Ur Specific [place] 1.005 04/20/19 09:00 Urine Protein NEGATIVE mg/dL (NEGATIVE) 04/20/19 09:00 Urine Glucose (UA) NEGATIVE mg/dL (NEGATIVE) 04/20/19 09:00 Urine Ketones NEGATIVE mg/dL (NEGATIVE) 04/20/19 09:00 Urine Blood NEGATIVE (NEGATIVE) 04/20/19 09:00 Urine Nitrite NEGATIVE (NEGATIVE) 04/20/19 09:00 Urine Bilirubin NEGATIVE (NEGATIVE) 04/20/19 09:00 Urine Urobilinogen NEGATIVE mg/dL (<2.0) 04/20/19 09:00 Ur Leukocyte Esterase SMALL (NEGATIVE) H 04/20/19 09:00 Urine WBC (Auto) 10 /HPF 04/20/19 09:00 Urine RBC (Auto) 1 /HPF 04/20/19 09:00 Squamous Epi Cells Auto 4 /HPF 04/20/19 09:00 Urine Mucus (Auto) RARE /LPF 04/20/19 09:00 Urine Ascorbic Acid NEGATIVE (NEGATIVE) 04/20/19 09:00 10/05/19 10/05/19 10/05/19 08:06 11:05 19:15 CK-MB (CK-2) 1.24 0.77 Troponin I < 0.012 < 0.012 < 0.012 Impressions: Chest X-Ray 04/20/19 07:54 IMPRESSION: NO ACUTE RADIOGRAPHIC FINDING IN THE CHEST. Stroke Is this a Stroke Patient?: No Acute Heart Failure - Is this a Heart Failure Patient?: No
[2019-04-21 13:48] VITALS: BP 127/75
== END 2019-04-21 13:37 | disposition home or self-care (01) ==
LOC: ER 07:33 → EH 15:55 → 5 17:40
PROVIDERS: ADMIT Internal Medicine; ATTEND Internal Medicine
DX: R07.89 Other chest pain (principal); F32.9 Major depressive disorder, single episode, unspecified; G35 Multiple sclerosis; E03.9 Hypothyroidism, unspecified; E66.9 Obesity, unspecified; R10.2 Pelvic and perineal pain; G89.29 Other chronic pain; R10.9 Unspecified abdominal pain; I10 Essential (primary) hypertension; Z82.49 Family history of ischemic heart disease and other diseases of the circulatory system; Z79.899 Other long term (current) drug therapy; Z98.84 Bariatric surgery status; Z90.49 Acquired absence of other specified parts of digestive tract; Z87.11 Personal history of peptic ulcer disease
CPT/HCPCS: 93005; 99285; 96374; 96375; 36415 ×2; 82553; 82550; 83690; 83735; 84443; 85025 ×2; 80053 ×2; 81001; 84484; 85379; 80061; 71045; 93010; G0378 ×3; J1885; J2060; J3490

== ENCOUNTER 2019-06-04 06:16 | Emergency (ER) | payer OTHER ==
[2019-06-04 07:30] LABS: ABSOLUTE EOSINOPHILS # (AUTO) 0.1 10^3/uL (0.0-0.6); ABSOLUTE LYMPHOCYTES (AUTO) 1.1 10^3/uL (0.5-4.7); ABSOLUTE MONOCYTES (AUTO) 0.6 10^3/uL (0.1-1.4); ABSOLUTE NEUT (AUTO) 2.7 10^3/uL (1.7-8.2); BASOPHILS % (AUTO) 0.4 % (0-2); EOSINOPHILS % (AUTO) 1.8 % (0-6); HEMATOCRIT 38.8 % (36.0-47.0); HEMOGLOBIN 13.3 g/dL (12.0-15.5); LYMPHOCYTES % (AUTO) 23.9 % (13-45); MEAN CORPUSCULAR HEMOGLOBIN 30.7 pg (27.0-33.4); MEAN CORPUSCULAR HGB CONC 34.2 g/dL (32.0-36.0); MEAN CORPUSCULAR VOLUME 90 fl (80-97); MONOCYTES % (AUTO) 13.7 % (3-13); PLATELET COUNT 264 10^3/uL (150-450); RED BLOOD COUNT 4.33 10^6/uL (3.72-5.28); RED CELL DISTRIBUTION WIDTH 13.7 % (11.5-14.0); SEGMENTED NEUTROPHILS % (AUTO) 60.2 % (42-78); TOTAL CELLS COUNTED % (AUTO) 100 %; WHITE BLOOD COUNT 4.4 10^3/uL (4.0-10.5)
--- NOTE | 2019-06-04 07:30 | ER Document Report ---
ED Medical Screen (RME) - General Chief Complaint: Chest Pain Stated Complaint: CHEST PAIN Time Seen by Provider: 06/04/19 06:55 Mode of Arrival: Ambulatory Information source: Patient Notes: Patient is a 58-year-old female presenting to the emergency department with chief complaint of chest pain. Patient reports she had a nuclear stress test done yesterday with Dr. Sanabria and states that she did not feel quite right immediately after the test. She states she went home and started having nausea vomiting, heart fluttering and eventually a pressure in her chest and the cramping feeling that radiated down to left upper quadrant and into the left arm from the chest wall. She states she took 2 sublingual nitroglycerin and decided to bring herself to the emergency department. She states that when she got here her chest pain resolved she is currently chest pain-free. Patient denies any known cardiac history but does report a strong family history. She does report she has had recurrent chest pain for quite some time which is what led her to see Dr. Sanabria for the nuclear stress test. Exam: Heart sounds S1-S2 present with no ectopy noted Lung sounds clear and equal bilaterally. I have greeted and performed a rapid initial assessment of this patient. A comprehensive ED assessment and evaluation of the patient, analysis of test results and completion of the medical decision making process will be conducted by additional ED providers. I have specifically instructed the patient or family members with the patient to immediately return to any nursing staff should anything change in the patient's condition or with their chief complaint. This medical record was dictated with voice recognizing software. There may be grammatical, syntax errors that are unintended. TRAVEL OUTSIDE OF THE [place] IN LAST 30 DAYS: No - Related Data Allergies/Adverse Reactions: codeine [Codeine] Allergy (Intermediate, Verified 12/07/18 10:27) Hives, Vomiting Home Medications: Levothyroxine. [place] THyroid. Metoprolol Succ ER. Modafinil. Cymbalta. Atorvastatin. Oxcarbazepine. Ocrevus Infusion Past Medical History - Social History Chew tobacco use (# tins/day): No Frequency of alcohol use: None Drug Abuse: None - Past Medical History Cardiac Medical History: Denies: Hx Coronary Artery Disease, Hx Heart Attack, Hx Hypertension Pulmonary Medical History: Reports: Hx Pneumonia Denies: Hx Asthma, Hx Bronchitis, Hx COPD Neurological Medical History: Denies: Hx Cerebrovascular Accident, Hx Seizures Endocrine Medical History: Reports: Hx Hypothyroidism GI Medical History: Reports: Hx Ulcer - 2016 Musculoskeltal Medical History: Denies Hx Arthritis, Reports Hx Multiple Sclerosis Psychiatric Medical History: Reports: Hx Depression Past Surgical History: Reports: Hx Abdominal Surgery - gastric bypass , Hx Cholecystectomy - November 2018 - Immunizations Hx Diphtheria, Pertussis, Tetanus Vaccination: Yes Physical Exam - Vital signs Vitals: Temp Pulse Resp BP Pulse Ox 97.5 F 81 18 135/81 H 100 06/04/19 06:22 06/04/19 06:22 06/04/19 06:22 06/04/19 06:22 06/04/19 06:22 Course - Vital Signs Vital signs: Temp Pulse Resp BP Pulse Ox 97.5 F 81 18 135/81 H 100 06/04/19 06:22 06/04/19 06:22 06/04/19 06:22 06/04/19 06:22 06/04/19 06:22 - Laboratory Result Diagrams: 06/04/19 07:06 06/04/19 07:06
[2019-06-04 07:53] LABS: ALBUMIN 3.9 g/dL (3.5-5.0); ALKALINE PHOSPHATASE 75 U/L (38-126); ANION GAP 8 (5-19); ASPARTATE AMINO TRANSFERASE 37 U/L (14-36); BILIRUBIN,DIRECT 0.1 mg/dL (0.0-0.4); BILIRUBIN,TOTAL 0.4 mg/dL (0.2-1.3); BLOOD UREA NITROGEN 10 mg/dL (7-20); CALCIUM 9.2 mg/dL (8.4-10.2); CARBON DIOXIDE 25 mmol/L (22-30); CHLORIDE 105 mmol/L (98-107); GLUCOSE 98 mg/dL (75-110); POTASSIUM 4.5 mmol/L (3.6-5.0); TOTAL PROTEIN 6.6 g/dL (6.3-8.2)
--- NOTE | 2019-06-04 08:00 | EKG REPORT ---
SEVERITY:- BORDERLINE ECG - SINUS RHYTHM BORDERLINE T ABNORMALITIES, ANT-LAT LEADS : Confirmed by: Roni Lloyd MD 04-Jun-2019 07:59:00
--- NOTE | 2019-06-04 08:26 | RADIOLOGY REPORT (SQ) ---
EXAM DESCRIPTION: CHEST 2 VIEWS COMPLETED DATE/TIME: 06/04/2019 7:37 am REASON FOR STUDY: chest pain COMPARISON: 04/20/2019 EXAM PARAMETERS: NUMBER OF VIEWS: two views TECHNIQUE: Digital Frontal and Lateral radiographic views of the chest acquired. RADIATION DOSE: NA LIMITATIONS: none FINDINGS: LUNGS AND PLEURA: No opacities, masses or pneumothorax. No pleural effusion. MEDIASTINUM AND HILAR STRUCTURES: No masses or contour abnormalities. HEART AND VASCULAR STRUCTURES: Heart normal size. No evidence for failure. BONES: No acute findings. HARDWARE: Prior cholecystectomy. OTHER: No other significant finding. IMPRESSION: NO ACUTE RADIOGRAPHIC FINDING IN THE CHEST. TECHNICAL DOCUMENTATION: JOB ID: [id number] [employer]- All Rights Reserved Reading location - IP/workstation name: [email or web address]
--- NOTE | 2019-06-04 08:55 | ER Document Report ---
ED General - General Chief Complaint: Chest Pain Stated Complaint: CHEST PAIN Time Seen by Provider: 06/04/19 06:55 Mode of Arrival: Ambulatory TRAVEL OUTSIDE OF THE [place] IN LAST 30 DAYS: No - HPI Notes: Patient is a 58-year-old female with history of MS who presents complaining of having chest pain intermittently after having a nuclear stress test done yesterday this started immediately after the test and then again occurred early this morning around 4 AM, but has since resolved. The pain did not radiate and was described as a pressure. Patient states that she did feel a flutter yesterday, but that has resolved as well. Patient states that she did not have any dyspnea associated. Patient did take 2 nitros earlier this morning without any changes in symptoms at the immediate time and came here for evaluation. No history of CAD, PE, DVT, CVA. 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 She has been able to eat and drink without difficulty. She is urinating normally and having normal bowel movements. Denies any headache, fever, neck pain, URI, sore throat, palpitations, syncope, cough, shortness of breath, wheeze, dyspnea, abdominal pain, nausea/vomiting/diarrhea, urinary retention, dysuria, hematuria, back pain, or rash. - Related Data Allergies/Adverse Reactions: codeine [Codeine] Allergy (Intermediate, Verified 12/07/18 10:27) Hives, Vomiting Home Medications: Levothyroxine. [place] THyroid. Metoprolol Succ ER. Modafinil. Cymbalta. Atorvastatin. Oxcarbazepine. Ocrevus Infusion Past Medical History - General Information source: Patient - Social History Smoking Status: Never Smoker Chew tobacco use (# tins/day): No Frequency of alcohol use: None Drug Abuse: None Family History: Reviewed & Not Pertinent Patient has suicidal ideation: No Patient has homicidal ideation: No - Past Medical History Cardiac Medical History: Denies: Hx Coronary Artery Disease, Hx Heart Attack, Hx Hypertension Pulmonary Medical History: Reports: Hx Pneumonia Denies: Hx Asthma, Hx Bronchitis, Hx COPD Neurological Medical History: Denies: Hx Cerebrovascular Accident, Hx Seizures Endocrine Medical History: Reports: Hx Hypothyroidism GI Medical History: Reports: Hx Ulcer - 2017 Musculoskeletal Medical History: Denies Hx Arthritis, Reports Hx Multiple Sclerosis Psychiatric Medical History: Reports: Hx Depression Past Surgical History: Reports: Hx Abdominal Surgery - gastric bypass , Hx Cholecystectomy - November 2018 - Immunizations Hx Diphtheria, Pertussis, Tetanus Vaccination: Yes Review of Systems - Review of Systems -: Yes All other systems reviewed and negative Physical Exam - Vital signs Vitals: Temp Pulse Resp BP Pulse Ox 97.5 F 81 18 135/81 H 100 06/04/19 06:22 06/04/19 06:22 06/04/19 06:22 06/04/19 06:22 06/04/19 06:22 - Notes Notes: PHYSICAL EXAMINATION: GENERAL: Well-appearing, well-nourished and in no acute distress. HEAD: Atraumatic, normocephalic. EYES: Pupils equal round and reactive to light, extraocular movements intact, sclera anicteric, conjunctiva are normal. ENT: Nares patent and without discharge. oropharynx clear without exudates. No tonsilar hypertrophy or erythema. Moist mucous membranes. NECK: Normal range of motion, supple without lymphadenopathy LUNGS: Breath sounds clear to auscultation bilaterally and equal. No wheezes rales or rhonchi. HEART: Regular rate and rhythm without murmurs, rubs, gallops. ABDOMEN: Soft, nontender, nondistended abdomen. No guarding, no rebound. No masses appreciated. Normal bowel sounds present. No CVA tenderness bilaterally. Musculoskeletal: FROM to passive/active. Strength 5+/5. Padmini neg. No asymmetry to LE's. Extremities: No cyanosis, clubbing, or edema b/l. Peripheral pulses 2+. Capillary refill less than 3 seconds. NEUROLOGICAL: Normal speech, normal gait. PSYCH: Normal mood, normal affect. SKIN: Warm, Dry, normal turgor, no rashes or lesions noted. Course - Re-evaluation Re-evalutation: 06/04/19 11:35 I spoke and reviewed case with Dr. Razo. Stress test yesterday was "entirely normal." She can f/u as scheduled with his office or call if she wasn't scheduled yet. Patient is an afebrile, well-hydrated 58-year-old female who presents to the ED with chest pain, unspecified. Vitals are acceptable without any significant tachycardia, tachypnea, or hypoxia. PE is otherwise unremarkable. Patient is nontoxic-appearing and is tolerating p.o. without any difficulties. Pt is currently asymptomatic. CBC, CMP, EKG/cardiac enzymes 2, chest x-ray are all unremarkable for any acute pathology. Patient has a heart score of <=3, Wells score of 0. Patient does not have any chest pain, dyspnea, or shortness of breath. Patient's presentation and symptomatology creates low suspicion for ACS, PE, pneumothorax, pericarditis, dissection, respiratory compromise, severe dehydration, sepsis, meningitis, or other systemic emergent condition at this time. Patient is aware that this condition can change from initial presentation and she needs to monitor symptoms closely and seek medical attention for any acute changes. Pt is feeling better and would like to go home. Recommend conservative measures for symptoms. Recheck with your PCM in 3-5 days. keep consult with Cardiology. Return to the ED with any worsening/concerning symptoms otherwise as reviewed in discharge. Patient is in agreement. - Vital Signs Vital signs: Temp Pulse Resp BP Pulse Ox 97.5 F 81 18 135/81 H 100 06/04/19 06:22 06/04/19 06:22 06/04/19 06:22 06/04/19 06:22 06/04/19 06:22 - Laboratory Result Diagrams: 06/04/19 07:06 06/04/19 07:06 Laboratory results interpreted by me: 06/04/19 06/04/19 07:06 07:06 [place] % (Auto) 13.7 H Creatinine 0.44 L AST 37 H Discharge - Discharge Clinical Impression: Nonspecific chest pain Condition: Stable Disposition: HOME, SELF-CARE Instructions: Chest Pain of Unclear Cause ([facility]) Additional Instructions: Maintain adequate fluid and food intake Take home medications as directed Healthy diet Monitor blood pressure daily and keep a log Monitor symptoms for any acute changes Recheck with your PCM in 3-5 days Keep appointment with cardiology Return to the ED with any worsening symptoms and/or development of fever, headache, chest pain, palpitations, syncope, shortness of breath, trouble breathing, abdominal pain, n/v/d, blood in stool/urine, loss of control of bowel/bladder, urinary retention, muscle weakness/paralysis, numbness/tingling, or other worsening symptoms that are concerning to you. Forms: Elevated Blood Pressure Referrals: ZACKERY BENZ MD [ACTIVE STAFF] - Follow up as needed
[2019-06-04 11:48] VITALS: BP 127/71
== END 2019-06-04 11:45 | disposition home or self-care (01) ==
LOC: ER 06:16
DX: R07.89 Other chest pain (principal); E03.9 Hypothyroidism, unspecified; Z79.899 Other long term (current) drug therapy
CPT/HCPCS: 36415; 71046; 80053; 84484; 85025; 93005; 93010; 99285

== ENCOUNTER → 2019-07-31 | Outpatient (CLI) | payer OTHER ==
--- NOTE | 2019-07-31 14:11 | RADIOLOGY REPORT (SQ) ---
EXAM DESCRIPTION: CT ABD/PELVIS WITH IV ORAL COMPLETED DATE/TIME: 07/31/2019 10:04 am REASON FOR STUDY: R10.13 EPIGASTRIC PAIN R10.13 EPIGASTRIC PAIN COMPARISON: None. TECHNIQUE: CT scan of the abdomen and pelvis performed using helical scanning technique with dynamic intravenous contrast injection. No oral contrast. Images reviewed with lung, soft tissue, and bone windows. Reconstructed coronal and sagittal MPR images reviewed. Delayed images for evaluation of the urinary system also acquired. All images stored on PACS. All CT scanners at this facility use dose modulation, iterative reconstruction, and/or weight based d osing when appropriate to reduce radiation dose to as low as reasonably achievable (ALARA). [facility]: Dose Right [facility]: CareDose [facility]: Dose Right [facility]: Teradose 4D [facility]: Recorrido CONTRAST TYPE AND DOSE: contrast/concentration: Isovue 350.00 mg/ml; Total Contrast Delivered: 100.0 ml; Total Saline Delivered: 72.0 ml RENAL FUNCTION: 0.6. RADIATION DOSE: CT Rad equipment meets quality standard of care and radiation dose reduction techniq ues were employed. CTDIvol: 23.4 - 23.6 mGy. DLP: 2517 mGy-cm.. LIMITATIONS: None. FINDINGS: LOWER CHEST: 4 mm nodule in the right lower lobe. LIVER: Normal size. No masses. No dilated ducts. SPLEEN: Normal size. No focal lesions. PANCREAS: No masses. No significant calcifications. No adjacent inflammation or peripancreatic fluid collections. Pancreatic duct not dilated. GALLBLADDER: Surgically absent. ADRENAL GLANDS: No significant masses or asymmetry. RIGHT KIDNEY AND URETER: No solid masses. No significant calcifications. No hydronephrosis or hyd roureter. LEFT KIDNEY AND URETER: No solid masses. No significant calcifications. No hydronephrosis or hydr oureter. AORTA AND VESSELS: No aneurysm. No dissection. Renal arteries, SMA, celiac without stenosis. RETROPERITONEUM: No retroperitoneal adenopathy, hemorrhage or masses. BOWEL AND PERITONEAL CAVITY: Previous gastric surgery. No masses or inflammatory changes. No free fl uid or peritoneal masses. APPENDIX: Normal. PELVIS: No mass. No free fluid. Normal bladder. ABDOMINAL WALL: No masses. No hernias. BONES: No significant or acute findings. OTHER: No other significant finding. IMPRESSION: 1. 4 MM NODULE IN THE RIGHT LOWER LOBE. MAY CONSIDER FOLLOW-UP BASED ON F[place] CRITERIA. 2. NO SIGNIFICANT OR ACUTE FINDING IN THE ABDOMEN OR PELVIS ON CT SCAN WITH IV CONTRAST. COMMENT: F[place] CRITERIA FOR FOLLOW-UP OF PULMONARY NODULES Incidentally detected new nodules in persons 35 or older. HIGH RISK: History of smoking or other known risk factors. <6 mm single solid nodule: LOW RISK: no routine followup. HIGH RISK: optional CT 12 mo. TECHNICAL DOCUMENTATION: JOB ID: [id number] Quality ID # [id number]: Final reports with documentation of one or more dose reduction techniques (e.g., Au tomated exposure control, adjustment of the mA and/or kV according to patient size, use of iterative reconstruction technique) 2010 [employer]- All Rights Reserved Reading location - IP/workstation name: [email or web address]
== END ==
LOC: RAD 09:36
PROVIDERS: ATTEND Internal Medicine Gastroenterology
DX: R10.13 Epigastric pain (principal)
CPT/HCPCS: 74177; 82565

== ENCOUNTER 2019-08-06 21:45 | Emergency (ER) | payer OTHER ==
[2019-08-06] MEDS ORDERED: ONDANSETRON HCL INJ/PF 4 MG/2 ML SDV IV ONE (23:06)
[2019-08-06] MEDS ORDERED: PANTOPRAZOLE SODIUM 40 MG VIAL IV ONE (23:06)
[2019-08-06] MEDS ORDERED: MORPHINE SULFATE 10 MG/ML INJ IV ONE (23:06)
[2019-08-06] MEDS ORDERED: NORMAL SALINE 1000 ML 1,000 ML IV ONE (23:07)
--- NOTE | 2019-08-06 23:09 | ER Document Report ---
ED GI/ - General Chief Complaint: Abdominal Pain Stated Complaint: ABDOMINAL PAIN CHEST PAIN Time Seen by Provider: 08/06/19 23:01 Primary Care Provider: CAROL DANIELS MD [Primary Care Provider] - Follow up in 3-5 days Notes: Patient is a 58-year-old female that comes emergency department for chief complaint of upper abdominal pain that is sharp and nonradiating, pain is worst in the middle and on the left side, she states it has been coming and going in waves today but became severe tonight. She denies vomiting, she reports normal bowel movements, she denies fever. Pain does radiate up into the bottom of the chest. She denies flank pain. She states she has had these symptoms intermittently for months now, not usually severe like now, she states she has had a cholecystectomy, endoscopy, and follows with gastroenterology Dr. Daniels. She has had a gastric bypass and is on Nexium. She states that she had a stress test earlier in the year because of her symptoms and it was normal. She denies alcohol or smoking. She denies recreational drugs. She denies other abdominal surgeries. She states she also has multiple sclerosis. TRAVEL OUTSIDE OF THE [place] IN LAST 30 DAYS: No - Related Data Allergies/Adverse Reactions: codeine [Codeine] Allergy (Intermediate, Verified 12/07/18 10:27) Hives, Vomiting Past Medical History - General Information source: Patient - Social History Smoking Status: Never Smoker - EKG shows Frequency of alcohol use: None Drug Abuse: None Lives with: Family Family History: Reviewed & Not Pertinent Patient has suicidal ideation: No Patient has homicidal ideation: No - Past Medical History Cardiac Medical History: Denies: Hx Coronary Artery Disease, Hx Heart Attack, Hx Hypertension Pulmonary Medical History: Reports: Hx Pneumonia Denies: Hx Asthma, Hx Bronchitis, Hx COPD Neurological Medical History: Denies: Hx Cerebrovascular Accident, Hx Seizures Endocrine Medical History: Reports: Hx Hypothyroidism GI Medical History: Reports: Hx Ulcer - 2017 Musculoskeletal Medical History: Denies Hx Arthritis, Reports Hx Multiple Sclerosis Psychiatric Medical History: Reports: Hx Depression Past Surgical History: Reports: Hx Abdominal Surgery - gastric bypass , Hx Cholecystectomy - November 2018 - Immunizations Hx Diphtheria, Pertussis, Tetanus Vaccination: Yes Review of Systems - Review of Systems Constitutional: No symptoms reported EENT: No symptoms reported Cardiovascular: No symptoms reported Respiratory: No symptoms reported Gastrointestinal: See HPI Genitourinary: No symptoms reported Female Genitourinary: No symptoms reported Musculoskeletal: No symptoms reported Skin: No symptoms reported Hematologic/Lymphatic: No symptoms reported Neurological/Psychological: No symptoms reported Physical Exam - Vital signs Vitals: Temp Pulse Resp BP Pulse Ox 97.7 F 71 18 151/87 H 99 08/06/19 22:09 08/06/19 22:09 08/06/19 22:09 08/06/19 22:09 08/06/19 22:09 - Notes Notes: GENERAL: Alert, appears uncomfortable and in moderate distress HEAD: Normocephalic, atraumatic. EYES: Pupils equal, round, and reactive to light. Extraocular movements intact. ENT: Oral mucosa moist, tongue midline. Oropharynx unremarkable. Airway patent. LUNGS: Clear to auscultation bilaterally, no wheezes, rales, or rhonchi. No respiratory distress. HEART: Regular rate and rhythm. No murmur ABDOMEN: Epigastric and left upper quadrant tenderness with wincing. No rigidity or rebound tenderness. Lower abdomen completely benign. Bowel sounds present. GENITOURINARY: Deferred EXTREMITIES: Moves all 4 extremities spontaneously. No edema, normal radial and dorsalis pedis pulses bilaterally. No cyanosis. BACK: no cervical, thoracic, lumbar midline tenderness. No saddle anesthesia, normal distal neurovascular exam. Moves all extremities in full range of motion. NEUROLOGICAL: Alert and oriented x3. Normal speech. Cranial nerves II through XII grossly intact. PSYCH: Slightly agitated SKIN: Warm, dry, normal turgor. No rashes or lesions noted. Course - Re-evaluation Re-evalutation: On initial evaluation patient appears uncomfortable, holding her left upper abdomen and rocking. Vital signs unremarkable except for some hypertension. Abdomen is unremarkable except for pain in the epigastric and left lower quadrant regions with wincing but notes severe guarding. Patient given morphin e, Zofran, Protonix bolus. On evaluation patient is much more comfortable. CBC unremarkable, chemistry and lipase unremarkable, troponin negative. EKG unremarkable, chest x-ray unremarkable with no free air under the diaphragm. Because of patient's gastric bypass, location of pain, I discussed CAT scan imaging. Patient declines, she states she had a CAT scan 4 days ago. I did review the system and I was able to find this, this was performed with oral and IV contrast, shows incidental findi ng of 4 mm right lung nodule but unremarkable abdominal exam with no acute findings. Patient able to tolerate p.o. again. Pain is not new and has been intermittent lately. Patient states she would prefer to be discharged now and follow-up with her staffing clerk, she has very close follow-up already scheduled. Provided with Carafate, symptom management, discussed close follow- up and return precautions in detail. Patient and family state appreciation and agreement. - Vital Signs Vital signs: Temp Pulse Resp BP Pulse Ox 97.6 F 60 15 128/60 H 100 08/07/19 02:13 08/07/19 02:13 08/07/19 02:13 08/07/19 02:13 08/07/19 02:13 - Laboratory Result Diagrams: 08/06/19 23:09 08/06/19 23:09 Laboratory results interpreted by me: 08/06/19 08/06/19 23:09 23:09 [place] % (Auto) 13.9 H Calcium 10.3 H Discharge - Discharge Clinical Impression: Upper abdominal pain Condition: Stable Disposition: HOME, SELF-CARE Additional Instructions: Your examination does not show any obvious concerning findings at this time. Your symptoms and overall findings are most consistent with inflammation and pain from the upper gastrointestinal tract. I recommend Carafate along with your current medications, the pain medication only if needed, and close follow- up with your provider for additional management. Return if you worsen including vomiting, severe worsening pain, fever, or any other concerning symptoms. Prescriptions: Sucralfate [Carafate 1 gm Tablet] 1 gm PO QID #20 tablet Hydrocodone/Acetaminophen [[place] 5-325 mg Tablet] 1 - 2 tab PO ASDIR #12 tablet Referrals: CAROL DANIELS MD [Primary Care Provider] - Follow up in 3-5 days
[2019-08-06 23:26] LABS: ABSOLUTE EOSINOPHILS # (AUTO) 0.1 10^3/uL (0.0-0.6); ABSOLUTE LYMPHOCYTES (AUTO) 1.9 10^3/uL (0.5-4.7); ABSOLUTE NEUT (AUTO) 4.3 10^3/uL (1.7-8.2); BASOPHILS % (AUTO) 0.6 % (0-2); HEMATOCRIT 42.1 % (36.0-47.0); HEMOGLOBIN 14.2 g/dL (12.0-15.5); LYMPHOCYTES % (AUTO) 25.4 % (13-45); MEAN CORPUSCULAR HGB CONC 33.8 g/dL (32.0-36.0); MEAN CORPUSCULAR VOLUME 92 fl (80-97); MONOCYTES % (AUTO) 13.9 % (3-13); PLATELET COUNT 309 10^3/uL (150-450); RED BLOOD COUNT 4.59 10^6/uL (3.72-5.28); RED CELL DISTRIBUTION WIDTH 13.7 % (11.5-14.0); SEGMENTED NEUTROPHILS % (AUTO) 58.1 % (42-78); TOTAL CELLS COUNTED % (AUTO) 100 %; WHITE BLOOD COUNT 7.3 10^3/uL (4.0-10.5)
--- NOTE | 2019-08-06 23:38 | RADIOLOGY REPORT (SQ) ---
EXAM DESCRIPTION: X-RAY CHEST ONE VIEW CLINICAL HISTORY: 58 years, Female, upper abd and chest pain COMPARISON: None. FINDINGS: Portable upright chest at 2318 hours on 08/06/2019. The lungs are well expanded and clear. The costophrenic angles are sharp. The cardiac silhouette, hilar regions, trachea, soft tissues and bony structures are unremarkable aside from degenerative changes. IMPRESSION: No acute cardiopulmonary disease.
[2019-08-06 23:40] LABS: ALBUMIN 4.9 g/dL (3.5-5.0); ALKALINE PHOSPHATASE 103 U/L (38-126); ANION GAP 12 (5-19); ASPARTATE AMINO TRANSFERASE 27 U/L (14-36); BILIRUBIN,DIRECT 0.3 mg/dL (0.0-0.4); BILIRUBIN,TOTAL 0.4 mg/dL (0.2-1.3); BLOOD UREA NITROGEN 11 mg/dL (7-20); CALCIUM 10.3 mg/dL (8.4-10.2); CARBON DIOXIDE 27 mmol/L (22-30); CHLORIDE 102 mmol/L (98-107); GLUCOSE 93 mg/dL (75-110); POTASSIUM 4.4 mmol/L (3.6-5.0); TOTAL PROTEIN 8.1 g/dL (6.3-8.2)
[2019-08-06 23:56] LABS: APPEARANCE,URINE CLEAR; BILIRUBIN,URINE NEGATIVE (NEGATIVE); COLOR,URINE STRAW; GLUCOSE, URINE NEGATIVE (NEGATIVE); KETONES,URINE NEGATIVE (NEGATIVE); LEUKOCYTE ESTERASE,URINE NEGATIVE (NEGATIVE); NITRITE,URINE NEGATIVE (NEGATIVE); PROTEIN,URINE NEGATIVE (NEGATIVE); URINE SPECIFIC GRAVITY 1.005; UROBILINOGEN,URINE NEGATIVE mg/dL (<2.0)
[2019-08-07] MEDS ORDERED: MORPHINE SULFATE 10 MG/ML INJ IV ONE (00:45)
[2019-08-07] MEDS ORDERED: HYDROCODONE/ACETAMINOPHEN 5-325 MG (6 TAB/ER DISP) PO PRN (01:48)
[2019-08-07 02:21] VITALS: BP 128/60
--- NOTE | 2019-08-07 07:44 | EKG REPORT ---
SEVERITY:- BORDERLINE ECG - SINUS RHYTHM BORDERLINE T ABNORMALITIES, ANT-LAT LEADS : Confirmed by: Roni Lloyd MD 07-Aug-2019 07:43:29
== END 2019-08-07 02:21 | disposition home or self-care (01) ==
LOC: ER 21:45
DX: R10.10 Upper abdominal pain, unspecified (principal); R07.9 Chest pain, unspecified; Z98.84 Bariatric surgery status; Z79.899 Other long term (current) drug therapy
CPT/HCPCS: 93005; 96376; 99284; 96361; 96374; 96375; 36415; 83690; 85025; 80053; 81001; 84484; 71045; 93010; J2270 ×2; C9113; J2405; J7030

== ENCOUNTER → 2019-08-12 | Outpatient (CLI) | payer OTHER ==
[2019-08-12 08:04] LABS: HEMATOCRIT 42.5 % (36.0-47.0); HEMOGLOBIN 14.1 g/dL (12.0-15.5); MEAN CORPUSCULAR HEMOGLOBIN 30.3 pg (27.0-33.4); MEAN CORPUSCULAR HGB CONC 33.1 g/dL (32.0-36.0); MEAN CORPUSCULAR VOLUME 91 fl (80-97); PLATELET COUNT 287 10^3/uL (150-450); RED BLOOD COUNT 4.65 10^6/uL (3.72-5.28); RED CELL DISTRIBUTION WIDTH 13.9 % (11.5-14.0); WHITE BLOOD COUNT 5.4 10^3/uL (4.0-10.5)
[2019-08-12 08:31] LABS: ALBUMIN 4.4 g/dL (3.5-5.0); ALKALINE PHOSPHATASE 82 U/L (38-126); ANION GAP 7 (5-19); ASPARTATE AMINO TRANSFERASE 29 U/L (14-36); BILIRUBIN,TOTAL 0.3 mg/dL (0.2-1.3); BLOOD UREA NITROGEN 9 mg/dL (7-20); CALCIUM 10.1 mg/dL (8.4-10.2); CARBON DIOXIDE 32 mmol/L (22-30); CHLORIDE 103 mmol/L (98-107); CHOLESTEROL 157.22 mg/dL (0-200); GLUCOSE 96 mg/dL (75-110); IRON 79.8 ug/dL (37-170); POTASSIUM 4.6 mmol/L (3.6-5.0); TOTAL PROTEIN 7.3 g/dL (6.3-8.2); TRIGLYCERIDES 96 mg/dL (<150)
[2019-08-12 08:43] LABS: DIRECT LDL 92 mg/dL (<100)
[2019-08-12 10:43] LABS: FOLATE 9.92 ng/mL (>2.76)
== END ==
LOC: OD 07:17
PROVIDERS: ATTEND Physician Assistant
DX: E46 Unspecified protein-calorie malnutrition (principal); K91.2 Postsurgical malabsorption, not elsewhere classified; R63.4 Abnormal weight loss; E78.2 Mixed hyperlipidemia; R53.83 Other fatigue; E55.9 Vitamin D deficiency, unspecified; E53.1 Pyridoxine deficiency; E66.01 Morbid (severe) obesity due to excess calories
CPT/HCPCS: 36415; 80053; 80061; 82306; 82607; 82728; 82746; 83036; 83540; 83735; 83970; 84425; 84443; 85027

== ENCOUNTER 2020-01-11 17:18 | Emergency (ER) | payer OTHER ==
[2020-01-11] MEDS ORDERED: ONDANSETRON HCL INJ/PF 4 MG/2 ML SDV IV ONE (18:40)
[2020-01-11] MEDS ORDERED: NORMAL SALINE 1000 ML 1,000 ML IV ONE (18:40)
--- NOTE | 2020-01-11 18:40 | ER Document Report ---
ED General - General Chief Complaint: Nausea/Vomiting/Diarrhea Stated Complaint: FEVER/VOMITING Notes: Patient is a 59-year-old white female with a history of multiple sclerosis who gets injections of Ocrevus every 6 months who presents to the emergency department with a chief complaint of nausea, vomiting and diarrhea that began in the middle the night last night. She states it was associated with a fever, T- max 102.2 Fahrenheit. She states she took one dose of Tylenol for the fever. She reports taking no medications for the nausea or vomiting or diarrhea because she did not think she would be able to hold it down. She states she has had about 2 episodes of brown watery diarrhea and approximately 15 episodes vomiting. She denies any localized pains. Denies chest pain or shortness of breath. Denies cough. Denies abdominal pain. She does add that she noticed her urine was a darker than normal color but she is got no urinary symptoms. Denies back pain. No headache. No neck pain. TRAVEL OUTSIDE OF THE [place] IN LAST 30 DAYS: No - Related Data Allergies/Adverse Reactions: codeine [Codeine] Allergy (Intermediate, Verified 12/07/18 10:27) Hives, Vomiting Past Medical History - Social History Smoking Status: Never Smoker Chew tobacco use (# tins/day): No Frequency of alcohol use: Social Drug Abuse: None Family History: Reviewed & Not Pertinent Patient has homicidal ideation: No - Past Medical History Cardiac Medical History: Denies: Hx Coronary Artery Disease, Hx Heart Attack, Hx Hypertension Pulmonary Medical History: Reports: Hx Pneumonia Denies: Hx Asthma, Hx Bronchitis, Hx COPD Neurological Medical History: Denies: Hx Cerebrovascular Accident, Hx Seizures Endocrine Medical History: Reports: Hx Hypothyroidism GI Medical History: Reports: Hx Ulcer - 2017 Musculoskeletal Medical History: Denies Hx Arthritis, Reports Hx Multiple Sclerosis Psychiatric Medical History: Reports: Hx Depression Past Surgical History: Reports: Hx Abdominal Surgery - gastric bypass , Hx Cholecystectomy - November 2018 - Immunizations Hx Diphtheria, Pertussis, Tetanus Vaccination: Yes Review of Systems - Review of Systems Constitutional: Fever Gastrointestinal: Diarrhea, Nausea, Vomiting -: Yes All other systems reviewed and negative Physical Exam - Vital signs Vitals: Temp 99.1 F 01/11/20 17:19 - General General appearance: Appears well, Alert In distress: None - HEENT Head: Normocephalic, Atraumatic Eyes: Normal Conjunctiva: Normal Pupils: PERRL Mouth/Lips: Normal Mucous membranes: Normal Pharynx: Normal Neck: Normal, Supple - Respiratory Respiratory status: No respiratory distress Chest status: Nontender Breath sounds: Normal Chest palpation: Normal - Cardiovascular Rhythm: Regular Heart sounds: Normal auscultation - Abdominal Inspection: Normal Distension: No distension Bowel sounds: Normal Tenderness: Nontender Organomegaly: No organomegaly - Back Back: No: CVA tenderness - Extremities General upper extremity: Normal inspection, Nontender, Normal color, Normal ROM, Normal temperature General lower extremity: Normal inspection, Nontender, Normal color, Normal ROM, Normal temperature, Normal weight bearing. No: Padmini's sign - Neurological Neuro grossly intact: Yes Cognition: Normal Orientation: AAOx4 Crawford Coma Scale Eye Opening: Spontaneous Fabi Coma Scale Verbal: Oriented Crawford Coma Scale Motor: Obeys Commands Crawford Coma Scale Total: 15 Speech: Normal - Psychological Associated symptoms: Normal affect, Normal mood - Skin Skin Temperature: Warm Skin Moisture: Dry Skin Color: Normal, Other - Normal turgor Course - Re-evaluation Re-evalutation: 01/11/20 21:01 Patient's liver enzymes severely elevated. Last set of enzymes to compare were from July were completely normal. Suspect Ocrevus as a causative agent. Suspect patient is in acute liver failure. She is stable with a normal men tation. She has no jaundice or icterus. Liver is normal by ultrasound per radiologist. Normal ammonia and Tylenol level. Hepatitis panel pending. Spoke with our hospitalist, Dr. Bro. He advised given the lack of specialist support this would not likely be the best place for the patient to stay should she worsen. Her neurologist is in [place] at [facility]. I have called them for request for transfer. 01/11/20 21:27 Spoke with the hospitalist at [facility], Dr. Núñez. Informed him of patient's status with the neurologist associated with her facility, Dr. Gonzalez. They have GI coverage and we do not. They will accept the patient for transfer for observation status. Dr. Russ requested repeat liver enzyme studies and INR in 12 hours. Will obtain repeat set at 6:30 AM. Patient is currently stable at this time. We will continue to monitor. We are awaiting bed assignment for transfer to [facility]. - Vital Signs Vital signs: Temp Pulse Resp BP Pulse Ox 100 F 72 16 130/71 H 99 01/11/20 21:13 01/11/20 21:13 01/11/20 21:13 01/11/20 21:13 01/11/20 21:13 - Laboratory Result Diagrams: 01/11/20 18:36 01/11/20 18:36 Laboratory results interpreted by me: 01/11/20 01/11/20 01/11/20 18:36 18:36 18:36 Lymph % (Auto) 5.9 L Absolute Neuts (auto) 8.8 H Seg Neutrophils % 86.3 H Sodium 136.9 L Potassium 3.3 L BUN 6 L Creatinine 0.43 L Glucose 112 H AST 1255 H ALT 1625 H Alkaline Phosphatase 255 H Ammonia Urine Ketones 20 H Urine Blood SMALL H Leukocyte Esterase Rfl TRACE H Acetaminophen 01/11/20 01/11/20 19:19 20:20 Lymph % (Auto) Absolute Neuts (auto) Seg Neutrophils % Sodium Potassium BUN Creatinine Glucose AST ALT Alkaline Phosphatase Ammonia < 8.7 L Urine Ketones Urine Blood Leukocyte Esterase Rfl Acetaminophen < 10 L Discharge - Discharge Clinical Impression: Transaminitis Liver failure, acute Qualifiers: Hepatic coma status: without hepatic coma Qualified Code(s): K72.00 - Acute and subacute hepatic failure without coma Condition: Serious Disposition: [facility]
[2020-01-11 18:57] LABS: ABSOLUTE EOSINOPHILS # (AUTO) 0.1 10^3/uL (0.0-0.6); ABSOLUTE LYMPHOCYTES (AUTO) 0.6 10^3/uL (0.5-4.7); ABSOLUTE MONOCYTES (AUTO) 0.7 10^3/uL (0.1-1.4); ABSOLUTE NEUT (AUTO) 8.8 10^3/uL (1.7-8.2); BASOPHILS % (AUTO) 0.1 % (0-2); EOSINOPHILS % (AUTO) 0.5 % (0-6); HEMATOCRIT 41.9 % (36.0-47.0); HEMOGLOBIN 14.3 g/dL (12.0-15.5); LYMPHOCYTES % (AUTO) 5.9 % (13-45); MEAN CORPUSCULAR HGB CONC 34.1 g/dL (32.0-36.0); MEAN CORPUSCULAR VOLUME 91 fl (80-97); MONOCYTES % (AUTO) 7.2 % (3-13); PLATELET COUNT 275 10^3/uL (150-450); RED BLOOD COUNT 4.61 10^6/uL (3.72-5.28); RED CELL DISTRIBUTION WIDTH 13.6 % (11.5-14.0); SEGMENTED NEUTROPHILS % (AUTO) 86.3 % (42-78); TOTAL CELLS COUNTED % (AUTO) 100 %; WHITE BLOOD COUNT 10.2 10^3/uL (4.0-10.5)
[2020-01-11 19:00] LABS: APPEARANCE,URINE SLIGHTLY-CLOUDY; BILIRUBIN,URINE NEGATIVE (NEGATIVE); COLOR,URINE YELLOW; GLUCOSE, URINE NEGATIVE (NEGATIVE); KETONES,URINE 20 mg/dL (NEGATIVE); PROTEIN,URINE NEGATIVE (NEGATIVE); URINE SPECIFIC GRAVITY 1.017; UROBILINOGEN,URINE NEGATIVE mg/dL (<2.0)
--- NOTE | 2020-01-11 19:15 | RADIOLOGY REPORT (SQ) ---
EXAM DESCRIPTION: ACUTE ABDOMEN SERIES IMAGES COMPLETED DATE/TIME: 01/11/2020 5:54 pm REASON FOR STUDY: n/v/d fever COMPARISON: None. NUMBER OF VIEWS: Three views. TECHNIQUE: Frontal chest, supine abdomen and upright/decubitus abdomen radiographic images acquired. LIMITATIONS: None. FINDINGS: CHEST: Lungs clear of infiltrates. FREE AIR: None. No abnormal gas collections. BOWEL GAS PATTERN: Nonobstructive pattern. No dilated loops or air fluid levels. CALCIFICATIONS: No suspicious calcifications. HARDWARE: None in the abdomen. SOFT TISSUES: No gross mass or suggestion of organomegaly. BONES: No acute fracture. No worrisome bone lesions. OTHER: No other significant finding. IMPRESSION: NO RADIOGRAPHIC EVIDENCE FOR ACUTE ABDOMINAL DISEASE. NO ACUTE CARDIOPULMONARY DISEASE. TECHNICAL DOCUMENTATION: JOB ID: [id number] [employer]- All Rights Reserved Reading location - IP/workstation name: [email or web address]
[2020-01-11 19:19] LABS: ALBUMIN 4.1 g/dL (3.5-5.0); ALKALINE PHOSPHATASE 255 U/L (38-126); ANION GAP 5 (5-19); BILIRUBIN,DIRECT 0.1 mg/dL (0.0-0.4); BILIRUBIN,TOTAL 0.9 mg/dL (0.2-1.3); BLOOD UREA NITROGEN 6 mg/dL (7-20); CALCIUM 9.1 mg/dL (8.4-10.2); CARBON DIOXIDE 28 mmol/L (22-30); CHLORIDE 104 mmol/L (98-107); GLUCOSE 112 mg/dL (75-110); POTASSIUM 3.3 mmol/L (3.6-5.0); TOTAL PROTEIN 6.9 g/dL (6.3-8.2)
[2020-01-11 19:26] LABS: ASPARTATE AMINO TRANSFERASE 1255 U/L (14-36)
--- NOTE | 2020-01-11 20:31 | RADIOLOGY REPORT (SQ) ---
US ABDOMEN DOPPLER LIMITED CLINICAL STATEMENT: RUQ, transaminitis, n/v Findings: Pancreas is within normal limits. Aorta and IVC are within normal limits with no aneurysm. Liver measures 16.0 cm with no focal lesions. Portal vein is patent with hepatopedal flow. Status post cholecystectomy. No biliary dilatation with CBD measuring 4 to 5 mm. Right kidney measures 11.8 cm. No right hydronephrosis. No right upper quadrant ascites. IMPRESSION: Status post cholecystectomy. No biliary dilatation.
[2020-01-11 21:50] LABS: INTERNATIONAL RATION (INR) 1.15; PROTHROMBIN TIME 14.8 SEC (11.4-15.4)
[2020-01-12 00:45] VITALS: BP 123/63
[2020-01-13 12:36] LABS: HEPATITS B SURFACE ANTIGEN Negative (Negative)
[2020-01-13 12:53] LABS: HEPATITIS C VIRUS ANTIBODY <0.1 s/co ratio (0.0-0.9)
== END 2020-01-12 00:26 | disposition short-term general hospital (02) ==
LOC: ER 17:18
DX: K72.00 Acute and subacute hepatic failure without coma (principal); R74.0 Nonspecific elevation of levels of transaminase and lactic acid dehydrogenase [LDH]; R11.2 Nausea with vomiting, unspecified; R19.7 Diarrhea, unspecified; Z20.828 Contact with and (suspected) exposure to other viral communicable diseases; G35 Multiple sclerosis; Z88.6 Allergy status to analgesic agent; Z98.84 Bariatric surgery status
CPT/HCPCS: 99285; 96361; 96374; 36415; 87040; 82140; 83605; 83690; 80307; 85025; 85610; 87635; 80053; 81001; 80074; 74022; 76705; 93976; J2405; J7030; C9803